=== PATIENT | female | born 1980 | race Caucasian/White ===

== ENCOUNTER 2022-06-03 10:57 | Emergency (ER) | payer MEDICAID ==
[~2022-06-03] VITALS: Ht 172.7 cm; Wt 75.0 kg
[2022-06-03 11:08] VITALS: BP 156/95
== END 2022-06-03 12:18 | disposition home or self-care (01) ==
LOC: ER 11:12
DX: Z48.02 Encounter for removal of sutures (principal)
CPT/HCPCS: 99281

== ENCOUNTER → 2022-08-28 | Day surgery (SDC) | payer MEDICAID ==
[~2022-08-28] VITALS: Ht 165.1 cm; Wt 68.0 kg
[~2022-08-28] MED LIST: FURO-151 MT; REV20 MT; SPIR25TA MT
== END | disposition home or self-care (01) ==
LOC: CCL 06:22
PROVIDERS: ATTEND Internal Medicine
DX: I10 Essential (primary) hypertension (principal); Z53.8 Procedure and treatment not carried out for other reasons

== ENCOUNTER → 2022-09-03 | Day surgery (SDC) | payer MEDICAID ==
[~2022-09-03] VITALS: Ht 30.5 cm; Wt 0.5 kg
[~2022-09-03] MED LIST changes: +ACETAMINOPHEN 325MG TABLET PO PRN; +ATROPINE SULFATE 1MG/10ML SYR IV PRN; +DIPHENHYDRAMINE 50MG/ML VIAL ONE; +FENTANYL CITRATE/PF 50MCG/ML 2ML VIAL ONE; +HEPARIN 1000 UNITS/ML 10ML ONE; +IODIXANOL 320MG/ML 100 ML BOTTLE IV ONE; +LIDOCAINE HCL/PF 1% 10 MG/ML 5ML VIAL ONE; +MIDAZOLAM HCL 2 MG/2 ML VIAL ONE
[2022-09-03 08:11] LABS: UCG SCREEN NEGATIVE
== END | disposition home or self-care (01) ==
LOC: CCL 06:17
PROVIDERS: ATTEND Internal Medicine
DX: I27.20 Pulmonary hypertension, unspecified (principal); Z79.899 Other long term (current) drug therapy; Z98.890 Other specified postprocedural states; Z82.49 Family history of ischemic heart disease and other diseases of the circulatory system
CPT/HCPCS: 81025; 93451; C1769; C1893; J1200; J1644; J2250; J3010; J3490; 99152; 99153; Q9967; G0500